=== PATIENT | male | born 1990 | race African-American/Black ===

== ENCOUNTER 2023-11-06 17:13 | Emergency (ER) | payer OTHER ==
[~2023-11-06] VITALS: Ht 175.3 cm; Wt 92.3 kg
[2023-11-06 17:32] VITALS: TEMP 98.3
[2023-11-06] MEDS ORDERED: Morphine 10 MG/ML VIAL IM ONE (17:45)
[2023-11-06] MEDS ORDERED: NAPROSYN500 MG PO (18:16)
[2023-11-06 18:25] VITALS: BP 145/82; PULSE 62
[2023-11-06] MEDS ORDERED: FLEXERIL 1010 MG/TAB PO (18:29)
[2023-11-06] MEDS ORDERED: PERCOCET 325 MG1 TA2 PO (18:29)
== END 2023-11-06 18:25 | disposition home or self-care (01) ==
LOC: COL.ER 17:13
DX: S39.012A Strain of muscle, fascia and tendon of lower back, initial encounter (principal); S76.311A Strain of muscle, fascia and tendon of the posterior muscle group at thigh level, right thigh, initial encounter; X58.XXXA Exposure to other specified factors, initial encounter; Y99.0 Civilian activity done for income or pay
CPT/HCPCS: J2270

== ENCOUNTER 2024-05-21 12:39 | Emergency (ER) | payer OTHER ==
[~2024-05-21] VITALS: Ht 175.3 cm; Wt 96.4 kg
[~2024-05-21 12:39] MED LIST: FLEXERIL 1010 MG/TAB PO; NAPROSYN500 MG PO; PERCOCET 325 MG1 TA2 PO
[2024-05-21 12:47] VITALS: TEMP 98.6
[2024-05-21] MEDS ORDERED: MEDROL 4MG DOSPA4 MG PO (16:29)
[2024-05-21] MEDS ORDERED: FLEXERIL 1010 MG/TAB PO (16:29)
[2024-05-21 16:37] VITALS: BP 123/68; PULSE 63
== END 2024-05-21 16:37 | disposition home or self-care (01) ==
LOC: COL.ER 12:39
DX: S39.012A Strain of muscle, fascia and tendon of lower back, initial encounter (principal); X58.XXXA Exposure to other specified factors, initial encounter

== ENCOUNTER 2024-07-18 07:18 | Emergency (ER) | payer OTHER ==
[~2024-07-18] VITALS: Ht 175.3 cm; Wt 97.3 kg
[~2024-07-18 07:18] MED LIST changes: +MEDROL 4MG DOSPA4 MG PO
[2024-07-18 07:37] VITALS: BP 134/74; TEMP 98.8
[2024-07-18] MEDS ORDERED: DOXYCYCLINE 10100 MG PO (08:13)
[2024-07-18] MEDS ORDERED: cefTRIAXone 500 MG,Lidocaine PF 1% 1 ML IM ONE (08:15)
[2024-07-18 08:46] VITALS: PULSE 63
== END 2024-07-18 08:49 | disposition home or self-care (01) ==
LOC: COL.ER 07:18
DX: Z20.2 Contact with and (suspected) exposure to infections with a predominantly sexual mode of transmission (principal)
CPT/HCPCS: J0696